=== PATIENT | female | born 2000 | race Caucasian/White ===

== ENCOUNTER 2020-01-16 15:45 | Emergency (ER) | payer OTHER, SELFPAY ==
[2020-01-16 15:54] VITALS: BP 117/61; PULSE 121; RESP 16; TEMP 36.9; O2SAT 100
--- NOTE | 2020-01-16 15:57 | ED.URI ---
HPI - URI/Sore Throat General Chief Complaint: Upper Respiratory Infection Stated Complaint: sore throat Time Seen by Provider: 01/16/20 16:03 Source: patient and RN notes reviewed Mode of arrival: ambulatory Limitations: no limitations History of Present Illness HPI Narrative: This is a 19 years old female presents to the office for an evaluation of sore throat for two days. Associated with bilateral ears pain. Denies fever, cough, abdominal pain or vomiting. Admits to history of MONO. NO treatment prior to arrival. Related Data Allergies Allergy/AdvReac Type Severity Reaction Status Date / Time amoxicillin Allergy Unknown Verified 02/13/16 18:20 Review of Systems Review of Systems: Narrative: CONSTITUTIONAL: Denies fever ENT: Denies rhinorrhea, congestion CARDIOVASCULAR: Denies chest pain RESPIRATORY: Denies dyspnea, wheezing, cough GASTROINTESTINAL: Denies abdominal pain, nausea, vomiting, diarrhea. GENITOURINARY: Denies urinary symptoms or discharge SKIN: Denies rash MUSCULOSKELETAL: Denies acute back pain NEUROLOGIC: Denies lightheaded PMFSH Past Medical History Medical History (Updated 01/16/20 @ 16:19 by AARON Avendano) History of mononucleosis Comments At time of signature, I agree with nursing past medical, surgical, social and family history. There is no relevant family history pertinent to the presenting complaint. Exam Narrative: Exam Narrative: GENERAL: This is a well-nourished, well-developed patient, in no apparent distress. EARS: External ears normal, auditory canals clear and without drainage, TMs normal without perforation. Hearing grossly intact. NOSE: External nose normal with no obvious nasal discharge, nares without redness, no rhinorrhea. THROAT: Mucous membranes moist, posterior pharynx edematou, erythema with tonsils 2+ with exduative. NECK: Neck supple, non-tender without lymphadenopathy, masses or thyromegaly. CARDIOVASCULAR: Regular rate and rhythm without murmurs, gallops, or rubs. RESPIRATORY: Clear to auscultation. Breath sounds equal bilaterally. No wheezes, rales, or rhonchi. GASTROINTESTINAL: Abdomen soft, non-tender, nondistended. Bowel sounds are active. No hepato-splenomegaly, or palpable masses. No guarding. SKIN: warm, intact with no suspicious lesions or rash, good texture and turgor. NEURO: awake, alert, and oriented to person, place and time. There were no obvious focal neurologic abnormalities. Steady gait [place] Coma Scale Eye Opening: Spontaneous 4 [place] Coma Scale Motor: Obeys Commands 6 [place] Coma Scale Verbal: Oriented 5 Course Vital Signs Vital signs: Vital Signs Temperature 98.4 F 01/16/20 15:54 Pulse Rate 121 H 01/16/20 15:54 Respiratory Rate 16 01/16/20 15:54 Blood Pressure 117/61 01/16/20 15:54 Pulse Oximetry 100 01/16/20 15:54 Temperature 98.4 F 01/16/20 15:54 Pulse Rate 121 H 01/16/20 15:54 Respiratory Rate 16 01/16/20 15:54 Blood Pressure 117/61 01/16/20 15:54 Pulse Oximetry 100 01/16/20 15:54 MDM - URI/Sore Throat MDM Narrative Medical decision making narrative: Discharge instructions reviewed with patient, as well as provided in writing per nursing staff. The instructions also include specific and strict return/GO TO THE ER as well as f/u information. All questions have been answered, and the patient deny any further questions with discharge and discharge plan. Differential Diagnosis Differential diagnosis: Likely upper respiratory infection, otitis media, sinusitis, viral infection, bronchitis, influenza and pharyngitis Lab Data Attestation: I reviewed the patient's lab results. Labs: Strep Screen Presumptive Negative *(Reference Range: Negative)* Critical Care Time Critical Care Time Critical Care Time: No Discharge Plan Discharge Clinical Impression: Acute tonsillitis Qualifiers: Pharyngitis/tonsillitis etiology: unspecified etiology Qualified Code(s)
== END 2020-01-16 16:22 | disposition home or self-care (01) ==
PROVIDERS: Emergency Provider Nurse Practitioner; PCP Nurse Practitioner
DX: J03.90 Acute tonsillitis, unspecified (principal)
CPT/HCPCS: 87081; 87880; 99213; G0463

== ENCOUNTER 2021-12-31 10:48 | Emergency (ER) | payer OTHER, SELFPAY ==
[2021-12-31 11:19] VITALS: BP 114/67; PULSE 83; RESP 12; TEMP 37; O2SAT 100
--- NOTE | 2021-12-31 11:23 | ED.URI ---
HPI - URI/Sore Throat General Chief Complaint: Upper Respiratory Infection Stated Complaint: sorethroat,nasal congestion Time Seen by Provider: 12/31/21 11:23 Source: patient Mode of arrival: ambulatory Limitations: no limitations History of Present Illness HPI Narrative: 21-year-old female presents with complaint of sinus congestion, postnasal drainage, runny nose, headaches, fatigue, body aches. Has had symptoms for 4 days. Reports she is very fatigued and has been taking long naps during the day. Is not taking any [id number] medication to treat her symptoms. Is scheduled to be at work tonight. And states she feels as though she is not able to stay awake for that shift. All systems reviewed and negative except as noted above. Related Data Home Medications Medication Instructions Recorded Confirmed norethindrone-e.estradiol-iron 1 tablet PO DAILY 12/31/21 12/31/21 [Avrinder Fe 09/13 (28)] Allergies Allergy/AdvReac Type Severity Reaction Status Date / Time amoxicillin Allergy Unknown Other Verified 12/31/21 11:34 Review of Systems Review of Systems: CONSTITUTIONAL: Denies fever, chills, or sweats. Reports fatigue EYES: Denies visual changes, redness, or discharge. ENT: Reports rhinorrhea, congestion, sore throat. Denies otalgia. CARDIOVASCULAR: Denies chest pain, palpitations, or edema. RESPIRATORY: Denies cough or dyspnea. GASTROINTESTINAL: Denies abdominal pain, nausea, vomiting, or diarrhea. GENITOURINARY: Denies dysuria or hematuria. SKIN: Denies rash or itching. MUSCULOSKELETAL: Denies back pain, joint pain. Reports myalgia. NEUROLOGIC: Denies headache, numbness, or weakness. PSYCHIATRIC: Denies anxiety or depression. All other systems reviewed are negative, except as documented in HPI. REPLACED BY [facility] Past Medical History Medical History (Updated 12/31/21 @ 12:18 by Kelsi Lopez NP) History of mononucleosis Comments At time of signature, agree with nursing past medical, surgical, social and family history. There is no relevant family history pertinent to the presenting complaint. Exam Narrative: GENERAL: This is a well-nourished, well-developed patient. Patient is ill-appearing but in no distress. HEAD: normocephalic, atraumatic. EYES: PERRL. Sclera clear/white. Vision is grossly intact. EARS: External ears normal, auditory canals clear and without drainage, TMs normal without perforation. Hearing grossly intact. NOSE: External nose normal with clear nasal drainage, erythema to both nares patent THROAT: Mucous membranes moist, mild erythema to posterior pharynx with clear postnasal drainage. Moderate congestion. NECK: Neck supple, non-tender without lymphadenopathy, masses or thyromegaly. CARDIOVASCULAR: Regular rate and rhythm without murmurs, gallops, or rubs. RESPIRATORY: Clear to auscultation. Breath sounds equal bilaterally. No wheezes, rales, or rhonchi. SKIN: warm, Dry, intact with no suspicious lesions or rash, good texture and turgor. NEURO: awake, alert, and oriented to person, place and time. There were no obvious focal neurologic abnormalities. EXTREMITIES: Normal range of motion to all extremities. Course Course Level of Care: Express Care Visit Vital Signs Vital signs: Vital Signs Temperature 37.0 C 12/31/21 11:19 Pulse Rate 83 12/31/21 11:19 Respiratory Rate 12 12/31/21 11:19 Blood Pressure 114/67 12/31/21 11:19 Pulse Oximetry 100 12/31/21 11:19 Temperature 37.0 C 12/31/21 11:41 Pulse Rate 83 12/31/21 11:41 Respiratory Rate 12 12/31/21 11:41 Blood Pressure 114/67 12/31/21 11:41 Pulse Oximetry 100 12/31/21 11:41 Reviewed MDM - URI/Sore Throat MDM Narrative Medical decision making narrative: Patient is aware of diagnosis, understands and agrees to treatment plan. Anticipatory guidance given. Patient agrees to follow-up as directed and is aware of reasons to seek care at the emergency department. Portions of this record may have be
[2021-12-31 11:41] VITALS: BP 114/67; PULSE 83; RESP 12; TEMP 37; O2SAT 100
== END 2021-12-31 12:20 | disposition home or self-care (01) ==
PROVIDERS: Emergency Provider Nurse Practitioner Family; PCP Nurse Practitioner
DX: J06.9 Acute upper respiratory infection, unspecified (principal); Z20.822 Contact with and (suspected) exposure to COVID-19
CPT/HCPCS: 87081; 87426; 87804; 87880; 99213; C9803; G0463

== ENCOUNTER 2024-12-17 11:12 | Observation (INO) | payer OTHER, SELFPAY ==
[2024-12-17 11:59] VITALS: BP 140/89; PULSE 92
[2024-12-17 12:06] LABS: OBXCEM ROM Plus Negative (Negative)
--- NOTE | 2024-12-20 07:22 | PM.OBTRLD ---
OB - Triage/Final Diagnosis Visit Information Reason for evaluation: threatened labor Comments/Additional reasons for admission: I have assessed the risk for this patient, Charisse Nolan, and determined that she would benefit from observation care. Evaluation Laboratory results: Laboratory Tests 12/17/24 12:04 Membranes Rupture Rom plus negative
== END 2024-12-17 12:15 | disposition home or self-care (01) ==
PROVIDERS: Admitting Provider Obstetrics & Gynecology; Visit Provider Obstetrics & Gynecology
DX: O47.02 False labor before 37 completed weeks of gestation, second trimester (principal); Z3A.26 26 weeks gestation of pregnancy
CPT/HCPCS: 59025; 84112; G0378; G0379

== ENCOUNTER 2024-12-17 16:50 | Observation (INO) | payer OTHER, SELFPAY ==
[2024-12-17 19:40] VITALS: TEMP 36.8
--- NOTE | 2024-12-20 07:21 | PM.OBTRLD ---
OB - Triage/Final Diagnosis Visit Information Reason for evaluation: threatened labor Comments/Additional reasons for admission: I have assessed the risk for this patient, Charisse Luna Jadapatricia, and determined that she would benefit from observation care.
== END 2024-12-17 20:04 | disposition home or self-care (01) ==
PROVIDERS: Admitting Provider Obstetrics & Gynecology; Visit Provider Obstetrics & Gynecology
DX: O47.1 False labor at or after 37 completed weeks of gestation (principal); Z3A.38 38 weeks gestation of pregnancy
CPT/HCPCS: 59025; 84112; G0378; G0379

== ENCOUNTER 2024-12-21 04:51 | Inpatient (IN) | payer OTHER, SELFPAY ==
[2024-12-21] VITALS (95 sets, daily range): BP systolic 85–136; BP diastolic 38–86; PULSE 65–103; RESP 16; TEMP 36.3–37.1; O2SAT 89–100; BMI 29.2
--- NOTE | 2024-12-21 05:05 | LDADM ---
This patient, Charisse Nolan, was admitted to Labor/Delivery/Recovery 103 on 12/21/24 at 04:51. Plans for labor, pain management and were discussed with patient. Patient/family oriented to hospital policies and general routines including ID bracelet, bed and alarms, visiting hours, pain management, procedures, bathroom and other care routines, personal items, smoking policy, room service/diet and guest tray routines, infant security routines, and visiting hours. Patient/Family are encouraged to report perceived risks to care and to ask questions if they do not understand what they are told or what they should do. See OBIX for further documentation.
[2024-12-21 05:28] LABS: Basophils Absolute Auto 0.1 K/mm3 (0.0-0.1); Basophils Percent Auto 0.3 % (0.2-1.2); Eosinophils Absolute Auto 0.3 K/mm3 (0-0.3); Hematocrit 36.8 % (37.0-47.0); Hemoglobin 11.5 g/dL (12.0-15.0); Immature Granulocyte Absolute 0.11 K/mm3 (0.00-0.031); Immature Granulocyte Percent A 0.7 % (0-0.5); Lymphocytes Absolute Auto 3.03 K/mm3 (0.9-3.2); Lymphocytes Percent Auto 20.6 % (18.3-44.2); Mean Corpuscular HGB Conc 31.3 g/dl (32-36); Mean Corpuscular Hemoglobin 28.2 pg (26-34); Mean Corpuscular Volume 90.2 fl (80-100); Mean Platelet Volume 10.6 fl (7.4-10.4); Monocytes Absolute Auto 1.1 K/mm3 (0.1-0.6); Monocytes Percent Auto 7.3 % (2.6-8.5); Neutrophils Absolute Auto 10.2 K/mm3 (1.3-6.7); Neutrophils Percent Auto 69.1 % (45.5-73.1); Platelet Count Result 260 k/mm3 (150-375); Red Blood Count 4.08 M/mm3 (4.2-5.4); Red Cell Distribution Width 15.7 % (11.5-14.5); White Blood Count 14.7 K/mm3 (4.5-10.0)
[2024-12-21] MEDS: OXYTOCIN 30 UNITS/NS 500 ML 30 UNITS/500 ML BAG 6 UNITS IV CONT (05:30)
[2024-12-21] MEDS: LACTATED RINGERS 1,000 ML 125 ML IV CONT ×3 (05:30→14:08)
--- NOTE | 2024-12-21 05:45 | PM.IMHP ---
H&P: HPI History of Present Illness Date/Time: 12/21/24 05:45 Chief Complaint: Induction of labor at term Narrative: 24-year-old 1 para 0 whose last menstrual period 03/22/2024, EDC is 12/27/2019 confirmed 7 week ultrasound presents at 30 weeks gestation induction labor. has been uncomplicated cervix is favorable. She is negative for group B strep PMFSH Past Medical History Medical History History of mononucleosis Family History Family History Other Cancer Diabetes mellitus Hypertension Social History Social History Smoking status: Never smoker Substance use: never Do You Feel Safe in your Home?: Yes Lack of Transportation: No Lack of Food: Never True Current Housing: I Have Housing Concerned About Future Housing: No Difficulty Paying Gas/Electric Bills: No Difficulty Paying for Meds: No Currently Unemployed: No Education: Bachelor's Degree Difficulty w/ Childcare or Family Care: No Spiritual care concerns: No Comments At time of signature, agree with nursing past medical, surgical, social and family history. There is no relevant family history pertinent to the presenting complaint. Meds Home Medications and Allergies Home Medications ?Medication ?Instructions ?Recorded ?Confirmed ?Type vit no.95-ferrous 1 tablet PO DAILY 11/19/24 11/19/24 History fumarate 28 mg-folic acid 800 mcg tablet () Allergies Allergy/AdvReac Type Severity Reaction Status Date / Time amoxicillin Allergy Unknown Other Verified 11/19/24 13:42 Vital Signs Vital Signs - 24 hr 12/21/24 05:14 12/21/24 05:19 12/21/24 05:24 Pulse Rate Blood Pressure Pulse Oximetry 98 99 Oxygen Delivery Room Air 12/21/24 05:29 12/21/24 05:30 12/21/24 05:34 Pulse Rate 92 87 Blood Pressure 123/72 122/72 Pulse Oximetry 99 98 Oxygen Delivery 12/21/24 05:35 12/21/24 05:40 Pulse Rate Blood Pressure Pulse Oximetry 97 98 Oxygen Delivery Exam Const: General: cooperative, healthy appearing and comfortable Nutritional Appearance: average body habitus Orientation/consciousness: oriented to person, oriented to place and oriented to time HENMT: Head: normal to inspection Resp: Effort & Inspection: normal respiratory effort Cardio: Rate: regular rate Rhythm: regular rhythm Heart sounds: S1 normal heart sound present and S2 normal heart sound present GI: Inspection: normal to inspection (Soft gravid uterus) : External Female Exam: normal external appearance Speculum Exam - Vagina: normal appearance of the vagina Speculum Exam - Cervix: normal appearance of the cervix (Cervix 2.5/60/-2. AROM clear FHTs reassuring) H&P: Results Labs Labs: Short CBC 12/21/24 Range/Units 05:13 WBC 14.7 H (4.5-10.0) K/mm3 Hgb 11.5 L (12.0-15.0) g/dL Hct 36.8 L (37.0-47.0) % Plt Count 260 (150-375) k/mm3 Assessment and Plan Assessment and plan (1) Term : Code(s): Z34.90 - Encounter for supervision of normal , unspecified, unspecified trimester Status: Acute Plan Medical induction of labor. Spontaneous vaginal delivery is expected. She is an epidural candidate
[2024-12-21 06:12] LABS: Syphilis IgG/IgM Antibody Negative (Negative)
[2024-12-21 06:21] LABS: HIV 1/2 Ab P24 Ag Result Negative (Negative)
--- NOTE | 2024-12-21 10:34 | WPDANESEPPF ---
Anes - Initial Pre Proc Eval Procedure: Labor Epidural Date/Time: 12/21/24 10:34 Surgeon: Nigel Abebe MD Pre Op Diagnosis: IOL Patient Data Age: 24 Gender: F Height: 1.8 m Weight: 95 kg Last Vital Signs Temp 36.3 C L 12/21/24 09:00 Pulse 89 12/21/24 09:30 BP 115/75 12/21/24 09:30 Pulse Ox 99 12/21/24 10:33 O2 Del Method Room Air 12/21/24 05:14 Allergies Allergy/AdvReac Type Severity Reaction Status Date / Time amoxicillin Allergy Unknown Other Verified 12/21/24 06:03 Home Medications ?Medication ?Instructions ?Recorded ?Confirmed ?Type vit no.95-ferrous 1 tablet PO DAILY 11/19/24 12/21/24 History fumarate 28 mg-folic acid 800 mcg tablet () Laboratory Tests 12/21/24 05:13 WBC 14.7 H K/mm3 (4.5-10.0) RBC 4.08 L M/mm3 (4.2-5.4) Hgb 11.5 L g/dL (12.0-15.0) Hct 36.8 L % (37.0-47.0) MCV 90.2 fl (80-100) MCH 28.2 pg (26-34) MCHC 31.3 L g/dl (32-36) RDW 15.7 H % (11.5-14.5) Plt Count 260 k/mm3 (150-375) MPV 10.6 H fl (7.4-10.4) Immature Gran % (Auto) 0.7 H % (0-0.5) Neut % (Auto) 69.1 % (45.5-73.1) Lymph % (Auto) 20.6 % (18.3-44.2) [place] % (Auto) 7.3 % (2.6-8.5) Eos % (Auto) 2.0 % (0-4.4) Baso % (Auto) 0.3 % (0.2-1.2) Lymph # (Auto) 3.03 K/mm3 (0.9-3.2) [place] # (Auto) 1.1 H K/mm3 (0.1-0.6) Eos # (Auto) 0.3 K/mm3 (0-0.3) Baso # (Auto) 0.1 K/mm3 (0.0-0.1) Abs Immat Gran (auto) 0.11 H K/mm3 (0.00-0.031) Absolute Neuts (auto) 10.2 H K/mm3 (1.3-6.7) Absolute Nucleated RBC 0.000 K/mm3 (0.0-0.012) Nucleated RBC % 0.0 % (0.0-0.2) Syphilis IgG/IgM Ab Negative (Negative) HIV 1&2 Ab/P24 Ag 4thGn Negative (Negative) Blood Type O Positive Antibody Screen Negative : gestational age ([place] 03/22/25) Patient hx anesthesia problems: none Family hx anesthesia problems: none Results Review: All pre-operative results and documents have been reviewed as part of the pre-operative evaluation. [facility] Past Medical History Medical History History of mononucleosis Family History Family History Other Cancer Diabetes mellitus Hypertension Social History Social History Smoking status: Never smoker Substance use: never Do You Feel Safe in your Home?: Yes Lack of Transportation: No Lack of Food: Never True Current Housing: I Have Housing Concerned About Future Housing: No Difficulty Paying Gas/Electric Bills: No Difficulty Paying for Meds: No Currently Unemployed: No Education: Bachelor's Degree Difficulty w/ Childcare or Family Care: No Spiritual care concerns: No Anes - Eval Final PreProcedure Day of Procedure 12/21/24 10:34 Patient weight: normal Heart: regular rate and rhythm Lungs: normal air movement Airway: Mallampati scale class 1 Neurological: alert and oriented Last oral intake: >/= 8 hours ASA classification: II Emergent: no Anesthetic plan: proceed Anesthesia type and monitoring: regional epidural and standard monitoring Results Review: All pre-operative results and documents have been reviewed as part of the pre-operative evaluation. Informed Consent: The patient's anesthetic plan and its attendant risks and benefits were discussed with the patient/family/POA. Questions were solicited and answers provided to the satisfaction of the patient/family/POA.
--- NOTE | 2024-12-21 11:53 | PM.OBPNLAB ---
Pain Control Date/time seen: 12/21/24 11:53 Pain control: tolerating well and epidural Pelvic Exam Dilation (cm): 5 Effacement (%): 75 station: -1 Amniotic membrane status: Leaking
--- NOTE | 2024-12-21 16:06 | PM.OBPNLAB ---
Pain Control Date/time seen: 12/21/24 16:06 Pain control: tolerating well and epidural Pelvic Exam Dilation (cm): 9 Effacement (%): 100 station: -1 Amniotic membrane status: Leaking
--- NOTE | 2024-12-21 17:47 | PM.OBPRVD ---
OB - Vaginal Delivery Note Procedure Delivery date: 12/21/24 Events: Elective Induction of Labor Induction method: AROM Delivery augmentation: Pitocin Delivery monitor: External FHT and Internal Uterine Route of delivery: Episiotomy description: None Laceration Description: None Specimen: No Quantitative Blood Loss (ml): 62 Anesthesia type: Epidural Disposition: Floor Complications: No immediate complications Narrative: Patient was admitted for induction of labor on the early a.m. 12/21/2024. Artificial rupture membranes performed. She progressed unremarkable 1st stage of labor to completely dilated when she was complete she pushed delivered head spontaneously in the CLAUDIA position. Anterior posterior shoulder delivered spontaneously. Cord clamped x2 and cut passed off the table given Apgars of 8 [id number]. Cord blood was drawn. Placenta delivered intact spontaneously. Twenty of Pitocin placed IV to help firm the uterus. After inspecting the vagina no tears or lacerations were noted. QBL was 62cc. All sponge, needle, instrument counts were correct. There were no immediate complications to monitor baby Baby Date of : 12/21/24 Time of : 17:38 Gestational Age by Date: 39 gender: Male presentation: vertex position: Right Occiput Anterior Placenta delivery description: Spontaneous Cord Vessel Description: 3 Vessels score one minute: 8 score five minutes: 9
--- NOTE | 2024-12-21 17:49 | P.DS_ITS ---
DS: Admitting Diagnosis Discharge Date 12/23/2024 Admitting Diagnosis Term DS: Discharge Diagnosis Discharge Diagnosis (1) Term : Code(s): Z34.90 - Encounter for supervision of normal , unspecified, unspecified trimester Status: Acute DS: Summary Hospital Course Reason for hospitalization: Patient was admitted for induction of labor on 12/21/2024 and underwent spontaneous vaginal delivery Hospital Course: Patient's hospital course unremarkable. She remained afebrile. She was up, voiding without difficulty, eating regular diet, ambulating, and generally without complaints. Time Spent with Patient Time attestation: Total time spent providing and/or coordinating discharge services: Exam Const: General: cooperative, healthy appearing and comfortable Nutritional Appearance: average body habitus Orientation/consciousness: oriented to person, oriented to place and oriented to time HENMT: Head: normal to inspection Resp: Effort & Inspection: normal respiratory effort Cardio: Rate: regular rate Rhythm: regular rhythm Heart sounds: S1 normal heart sound present and S2 normal heart sound present GI: Inspection: normal to inspection (Soft gravid uterus) : External Female Exam: normal external appearance Speculum Exam - Vagina: normal appearance of the vagina Speculum Exam - Cervix: normal appearance of the cervix (Cervix 2.5/60/-2. AROM clear FHTs reassuring) DS: Data Data Completed and Pending Labs on day of discharge: Labs from last 24 hours 12/21/24 05:13 WBC 14.7 H RBC 4.08 L Hgb 11.5 L Hct 36.8 L MCV 90.2 MCH 28.2 MCHC 31.3 L RDW 15.7 H Plt Count 260 MPV 10.6 H Immature Gran % (Auto) 0.7 H Neut % (Auto) 69.1 Lymph % (Auto) 20.6 [place] % (Auto) 7.3 Eos % (Auto) 2.0 Baso % (Auto) 0.3 Lymph # (Auto) 3.03 [place] # (Auto) 1.1 H Eos # (Auto) 0.3 Baso # (Auto) 0.1 Abs Immat Gran (auto) 0.11 H Absolute Neuts (auto) 10.2 H Absolute Nucleated RBC 0.000 Nucleated RBC % 0.0 Syphilis IgG/IgM Ab Negative HIV 1&2 Ab/P24 Ag 4thGn Negative Blood Type O Positive Antibody Screen Negative Discharge Plan Discharge Attending physician on discharge: Nigel Lewis Discharging Clinician: Nigel Lewis Patient Disposition: Home Activity: may shower, no straining and pelvic rest Diet: heart healthy Wound Care Instructions: follow printed instructions Patient Instructions: Antibiotic Form Patient Language: Malagasy Stand Alone Forms: General Discharge Information Follow-up/Referrals: Nigel Lewis MD [Physician] - Discharge Medications: No Action PNV cmb#95-ferrous fumarate-FA [] 28 mg iron- 800 mcg tablet 1 tablet PO DAILY Date of admission: 12/21/24 04:51 Primary Care Provider: PHYSICIAN,INDUSTRIAL MACHINE SYSTEM TECHNICIAN Admitting Provider: Nigel Lewis Attending physician on admission: Nigel Lewis Condition: Stable
[2024-12-21] MEDS: OXYTOCIN 30 UNITS/NS 500 ML 30 UNITS/500 ML BAG 125 UNITS IV CONT (18:07)
[2024-12-21] MEDS: LIDOCAINE 5% PATCH 1 PATCH TRANSDERM (21:55)
[2024-12-22] MEDS: IBUPROFEN 600 MG TABLET PO ×3 (00:53→18:40)
[2024-12-22] MEDS: ACETAMINOPHEN 325 MG TABLET 650 MG PO ×2 (00:53→18:41)
[2024-12-22 01:00] VITALS: BP 127/83; PULSE 64; RESP 16; TEMP 36.6; O2SAT 99
[2024-12-22 04:00] VITALS: BP 128/77; PULSE 77; RESP 18; TEMP 36.9; O2SAT 100
[2024-12-22 04:51] LABS: Hematocrit 35.9 % (37.0-47.0); Hemoglobin 11.1 g/dL (12.0-15.0)
--- NOTE | 2024-12-22 07:07 | P.PNOB_ITS ---
OB - PN: Subj Subjective Date/time seen: 12/22/24 07:07 Patient comments: no complaints, pain well controlled and tolerating diet [place] baby status: doing well OB - PN: Obj Data Labs 12/22/24 04:14 Labs: Laboratory Results - last 24 hr 12/22/24 04:14 Hgb 11.1 L Hct 35.9 L OB - PN A/P Assessment and Plan (1) Term : Code(s): Z34.90 - Encounter for supervision of normal , unspecified, unspecified trimester Status: Acute Plan Comments: routine care Time Spent With Patient Time: Total time spent is greater than 50% in coordination of care (as documented) at patient's floor/unit and/or counseling patient: Review of Systems 2 Review of Systems: CONSTITUTIONAL: Denies fever, chills, or sweats. Reports fatigue EYES: Denies visual changes, redness, or discharge. ENT: Reports rhinorrhea, congestion, sore throat. Denies otalgia. CARDIOVASCULAR: Denies chest pain, palpitations, or edema. RESPIRATORY: Denies cough or dyspnea. GASTROINTESTINAL: Denies abdominal pain, nausea, vomiting, or diarrhea. GENITOURINARY: Denies dysuria or hematuria. SKIN: Denies rash or itching. MUSCULOSKELETAL: Denies back pain, joint pain. Reports myalgia. NEUROLOGIC: Denies headache, numbness, or weakness. PSYCHIATRIC: Denies anxiety or depression. All other systems reviewed are negative, except as documented in HPI. Exam 2 Const: General: cooperative, healthy appearing and comfortable Nutritional Appearance: average body habitus Orientation/consciousness: oriented to person, oriented to place and oriented to time HENMT: Head: normal to inspection Resp: Effort & Inspection: normal respiratory effort Cardio: Rate: regular rate Rhythm: regular rhythm Heart sounds: S1 normal heart sound present and S2 normal heart sound present GI: Inspection: normal to inspection (Soft gravid uterus) : External Female Exam: normal external appearance Speculum Exam - Vagina: normal appearance of the vagina Speculum Exam - Cervix: normal appearance of the cervix (Cervix 2.5/60/-2. AROM clear FHTs reassuring)
[2024-12-22] MEDS: MULTIVIT/MIN/PREN/FOL AC/IRON TABLET 1 TAB PO (08:12)
[2024-12-22 08:15] VITALS: BP 106/72; PULSE 69; RESP 16; TEMP 36.8; O2SAT 99
[2024-12-22] MEDS: TETANUS,DIPHTHERIA,AC PERTUSSIS ADULT (0.5 ML) BOOSTRIX IM (10:02)
[2024-12-22 11:55] VITALS: BP 107/63; PULSE 70; RESP 16; TEMP 36.6; O2SAT 97
[2024-12-22 21:45] VITALS: BP 116/67; PULSE 68; RESP 16; TEMP 36.8; O2SAT 97
[2024-12-23] MEDS: IBUPROFEN 600 MG TABLET PO ×3 (00:08→12:39)
[2024-12-23] MEDS: ACETAMINOPHEN 325 MG TABLET 650 MG PO ×3 (00:08→12:39)
[2024-12-23] MEDS: LIDOCAINE 5% PATCH 1 PATCH TRANSDERM (00:10)
--- NOTE | 2024-12-23 05:46 | PM.OBPNVD ---
OB - PN: Subj Subjective Date/time seen: 12/23/24 05:46 Patient comments: no complaints, pain well controlled and tolerating diet [facility] status: doing well [facility] feeding status: exclusively breast feeding OB - PN: Obj Data Labs 12/22/24 04:14 OB - PN A/P Assessment and Plan (1) Term : Code(s): Z34.90 - Encounter for supervision of normal , unspecified, unspecified trimester Status: Acute Plan Comments: home Time Spent With Patient Time: Total time spent is greater than 50% in coordination of care (as documented) at patient's floor/unit and/or counseling patient: Review of Systems Review of Systems: CONSTITUTIONAL: Denies fever, chills, or sweats. Reports fatigue EYES: Denies visual changes, redness, or discharge. ENT: Reports rhinorrhea, congestion, sore throat. Denies otalgia. CARDIOVASCULAR: Denies chest pain, palpitations, or edema. RESPIRATORY: Denies cough or dyspnea. GASTROINTESTINAL: Denies abdominal pain, nausea, vomiting, or diarrhea. GENITOURINARY: Denies dysuria or hematuria. SKIN: Denies rash or itching. MUSCULOSKELETAL: Denies back pain, joint pain. Reports myalgia. NEUROLOGIC: Denies headache, numbness, or weakness. PSYCHIATRIC: Denies anxiety or depression. All other systems reviewed are negative, except as documented in HPI. Exam Const: General: cooperative, healthy appearing and comfortable Nutritional Appearance: average body habitus Orientation/consciousness: oriented to person, oriented to place and oriented to time HENMT: Head: normal to inspection Resp: Effort & Inspection: normal respiratory effort Cardio: Rate: regular rate Rhythm: regular rhythm Heart sounds: S1 normal heart sound present and S2 normal heart sound present GI: Inspection: normal to inspection (Soft gravid uterus) : External Female Exam: normal external appearance Speculum Exam - Vagina: normal appearance of the vagina Speculum Exam - Cervix: normal appearance of the cervix (Cervix 2.5/60/-2. AROM clear FHTs reassuring)
[2024-12-23 07:50] VITALS: BP 110/65; PULSE 65; RESP 16; TEMP 36.3; O2SAT 99
[2024-12-23 08:00] VITALS: PULSE 65; RESP 16; O2SAT 99
--- NOTE | 2024-12-23 09:05 | PC.NURSE ---
0715: Consulted with patient to assess needs related to . Discussed with mother her successes, concerns and any questions she has. Mother has hospital breast pump at bedside and denies further education regarding pumping. When pump is utilized, mother states that she gets approx. 1cc of EBM per session from each breast. Mother will call this RN for next feeding to assist with latching . She states that infant is not interested in this morning. 0905: Reviewed positioning and alignment, supporting breast, off-centered and leading with the chin with big, open, wide gape. latched optimally to the [right] breast in [football] position. Education given to the mother of how to visualize the suckling, swallows and how to listen for drinking at the breast (the ka sound). The was [able] to maintain latch without discomfort to mother. Reviewed working with the , supporting breast, protecting her nipples with an optimal deep latch, good positioning, and good hand washing. Encouraged understanding the benefits of skin to skin, milk production, intake/output feeding sheet and signs of adequate intake encouraging swallowing at the breast.
[2024-12-23] MEDS: MULTIVIT/MIN/PREN/FOL AC/IRON TABLET 1 TAB PO (12:39)
--- NOTE | 2024-12-23 14:27 | PC.NURSE ---
Upon entering room, was screaming and mother appeared to be tearful. Mother states that she pumped for 30 minutes and only got drops of breast milk. Discussed with mother that this RN would like to be present at next pumping session to assure that she is using the pump correctly. Mother understands. Infant was easy to console and took 5cc of expressed breast milk that mother pumped prior. Parents have agreed to supplement if needed.
--- NOTE | 2024-12-23 14:45 | PC.NURSE ---
Infant to nursery per mothers request. FOB states that mother has had minimal sleep since delivery. Parents would like to give a bottle of formula if needed during this time. Prior to sending infant to the nursery, mother states that did latch and had a feeding that lasted 20 minutes. She was able to independently latch and states there was no pain. Parents state that they believe may not have been going well due to visitors being present at the bedside.
[2024-12-23 19:26] VITALS: BP 122/77; PULSE 78; RESP 14; TEMP 36.7; O2SAT 99
[2024-12-24 08:33] VITALS: BP 119/77; PULSE 89; RESP 18; TEMP 36.8; O2SAT 98
== END 2024-12-23 21:45 | disposition home or self-care (01) | DRG 807 ==
LOC: ANHLDR 17:51 → ANHOB2 21:30
PROVIDERS: Admitting Provider Obstetrics & Gynecology; Visit Provider Obstetrics & Gynecology
DX: O32.6XX0 Maternal care for compound presentation, not applicable or unspecified (principal); Z37.0 Single live birth; Z3A.39 39 weeks gestation of pregnancy
CPT/HCPCS: 36415; 85014; 85018; 85025; 86593; 86703; 86850; 86900; 86901; 90715; A9270; G0432; J2590; J2795; J7120